=== PATIENT | male | born 1990 | race Caucasian/White ===

== ENCOUNTER 2018-09-19 21:18 | Inpatient (IN) | payer BC, OTHER ==
[~2018-09-19] VITALS: Ht 185.4 cm; Wt 81.6 kg
[2018-09-20] MEDS ORDERED: ONDANSETRON 4 MG/2 ML VIAL IM PRN (14:00)
[2018-09-20] MEDS ORDERED: IBUPROFEN 600 MG TABLET PO PRN (14:00)
[2018-09-20] MEDS ORDERED: MAGNESIUM HYDROXIDE 30 ML LIQUID UDC PO PRN (14:00)
[2018-09-20] MEDS ORDERED: BUPRENORPHINE HCL 2 MG TAB.SUBL SL PRN (14:00)
[2018-09-20] MEDS ORDERED: LORAZEPAM 1 MG TABLET PO PRN (14:00)
[2018-09-20] MEDS ORDERED: HYDROXYZINE PAMOATE 25 MG CAPSULE PO PRN (14:00)
[2018-09-20] MEDS ORDERED: LOPERAMIDE HCL 2 MG CAPSULE PO PRN ×2 (14:00)
[2018-09-20] MEDS ORDERED: MAG HYDROX/AL HYDROX/SIMETH 30 ML LIQUID UDC PO PRN (14:00)
[2018-09-20] MEDS ORDERED: ONDANSETRON ODT 4 MG TAB.RAPDIS SL PRN (14:00)
[2018-09-20] MEDS ORDERED: MIRALAX 17 GM POWD.PACK PO PRN (14:00)
[2018-09-20] MEDS ORDERED: diphenhydrAMINE 50 MG CAPSULE PO PRN (14:00)
[2018-09-20] MEDS ORDERED: 6 DAY PHENOBARBITAL TAPER -SERENITY PROTOCOL PO PRN (14:00)
[2018-09-20] MEDS ORDERED: ACETAMINOPHEN 325 MG TABLET PO PRN (14:00)
[2018-09-20] MEDS: MULTIVITAMINS,THERAPEUTIC TABLET PO SCH (14:00)
[2018-09-20 14:10] LABS: *AMPHETAMINE, URINE POSITIVE (NEGATIVE); *BARBITURATE, URINE NEGATIVE (NEGATIVE); *CANNABINOID, URINE NEGATIVE (NEGATIVE); *COCCAINE, URINE NEGATIVE (NEGATIVE); *OPIATE, URINE POSITIVE (NEGATIVE); *PHENCYCLIDINE SCREEN,URINE NEGATIVE (NEGATIVE)
[2018-09-20 15:09] LABS: BASOPHILS % (AUTO) 0.6 % (0.0-2.0); EOSINOPHILS # (AUTO) 0.2 K/uL (0.0-0.7); EOSINOPHILS % (AUTO) 2.8 % (0.0-7.0); HEMATOCRIT 39.8 % (36.7-47.1); HEMOGLOBIN 13.4 g/dL (12.5-16.3); LYMPHOCYTES # (AUTO) 1.9 K/uL (20.0-40.0); LYMPHOCYTES % (AUTO) 28.8 % (20.5-51.5); MEAN CORPUSCULAR HEMOGLOBIN 29.6 uug (23.8-33.4); MEAN CORPUSCULAR HGB CONC 34 g/dL (32.5-36.3); MEAN CORPUSCULAR VOLUME 87.8 fL (73.0-96.2); MONOCYTES # (AUTO) 0.7 K/uL (2.0-10.0); MONOCYTES % (AUTO) 10.7 % (0.0-11.0); NEUTROPHILS # (AUTO) 3.7 K/uL (1.8-8.9); NEUTROPHILS % (AUTO) 57.1 % (38.5-71.5); PLATELET COUNT (AUTO) 195 K/uL (152-348); RED BLOOD CELL COUNT(AUTO) 4.53 MIL/uL (4.06-5.63); WHITE BLOOD COUNT (AUTO) 6.5 K/uL (3.6-10.2)
[2018-09-20 15:20] LABS: ALANINE AMINOTRANSFERASE 79 U/L (16-63); ALKALINE PHOSPHATASE 60 U/L (50-136); ASPARTATE AMINOTRANSFERASE 42 U/L (15-37); BILIRUBIN,TOTAL 0.3 mg/dL (0.2-1.0); CARBON DIOXIDE 32 mmol/L (21-32); CHLORIDE 102 mmol/L (98-107); CREATININE 0.8 mg/dL (0.6-1.3); GLUCOSE 94 mg/dL (74-106); MAGNESIUM 1.7 mg/dL (1.8-2.4); POTASSIUM 3.9 mmol/L (3.5-5.1); TOTAL PROTEIN, SERUM 7.2 g/dL (6.4-8.2); UREA NITROGEN, BLOOD 11 mg/dL (7-18)
[2018-09-20 15:24] LABS: ETHANOL < 3 MG/DL (0-0)
[2018-09-20] MEDS: PHENOBARBITAL 60 MG TABLET PO SCH ×3 (15:24→21:31)
[2018-09-20 15:31] LABS: THYROID STIMULATING HORMONE 1.103 mIU/mL (0.358-3.740)
[2018-09-20 16:00] VITALS: BP 122/80
[2018-09-20] MEDS ORDERED: NAPR220C15 PO (18:13)
[2018-09-20 20:00] VITALS: BP_SYST 128; BP_SYST 137; BP_DIAS 70; BP_DIAS 84
[2018-09-20] MEDS ORDERED: MAGNESIUM OXIDE 400 MG TABLET PO ONE (22:00)
[2018-09-21] VITALS: BP 128/76
[2018-09-21 04:00] VITALS: BP 134/86
[2018-09-21 08:00] VITALS: BP 119/67
[2018-09-21] MEDS ORDERED: 5 DAY TAPER BUPRENORPHINE -SERENITY PROTOCOL SL PRN (09:00)
[2018-09-21] MEDS ORDERED: TUBERCULIN,PURIF.PROT.DERIV. 5 TU/0.1 ML TEST ID ONE (09:00)
[2018-09-21] MEDS: PHENOBARBITAL 60 MG TABLET PO SCH ×3 (09:03→20:44)
[2018-09-21] MEDS: MULTIVITAMINS,THERAPEUTIC TABLET PO SCH (09:03)
[2018-09-21] MEDS: BUPRENORPHINE HCL 2 MG TAB.SUBL SL SCH ×4 (09:03→20:45)
[2018-09-21 12:01] VITALS: BP 140/88
[2018-09-21 16:00] VITALS: BP 118/62
[2018-09-21 20:00] VITALS: BP 114/65
[2018-09-21] MEDS: METHOCARBAMOL 750 MG TABLET PO PRN (20:44)
[2018-09-22] VITALS: BP 128/71
[2018-09-22 08:00] VITALS: BP 105/57
[2018-09-22] MEDS: MULTIVITAMINS,THERAPEUTIC TABLET PO SCH (09:00)
[2018-09-22] MEDS: BUPRENORPHINE HCL 2 MG TAB.SUBL SL SCH ×3 (09:37→21:12)
[2018-09-22] MEDS: PHENOBARBITAL 60 MG TABLET PO SCH ×4 (09:37→21:13)
[2018-09-22 12:00] VITALS: BP 121/77
[2018-09-22 14:08] LABS: HEPATITIS B SURFACE AG Negative (Negative)
[2018-09-22 16:00] VITALS: BP 118/79
[2018-09-22 20:00] VITALS: BP 120/78
[2018-09-22] MEDS: CLONIDINE HCL 0.1 MG TABLET PO PRN (21:13)
[2018-09-22] MEDS: METHOCARBAMOL 750 MG TABLET PO PRN (21:13)
[2018-09-23] VITALS: BP 117/74
[2018-09-23 08:00] VITALS: BP 134/81
[2018-09-23] MEDS ORDERED: BUPRENORPHINE HCL 2 MG TAB.SUBL SL SCH (09:00)
[2018-09-23] MEDS: MULTIVITAMINS,THERAPEUTIC TABLET PO SCH (09:00)
[2018-09-23] MEDS: PHENOBARBITAL 60 MG TABLET PO SCH ×3 (09:00→20:32)
[2018-09-23 12:00] VITALS: BP 125/65
[2018-09-23] MEDS: BUPRENORPHINE HCL 2 MG TAB.SUBL SL SCH ×2 (15:00→20:32)
[2018-09-23 16:30] VITALS: BP 131/85
[2018-09-23 20:00] VITALS: BP 142/83
[2018-09-23] MEDS: METHOCARBAMOL 750 MG TABLET PO PRN (20:28)
[2018-09-23] MEDS: CLONIDINE HCL 0.1 MG TABLET PO PRN (20:28)
[2018-09-24] VITALS: BP 132/79
[2018-09-24 08:00] VITALS: BP 99/52
[2018-09-24] MEDS: BUPRENORPHINE HCL 2 MG TAB.SUBL SL SCH ×2 (09:00→14:39)
[2018-09-24] MEDS ORDERED: PHENOBARBITAL 60 MG TABLET PO SCH (09:00)
[2018-09-24] MEDS: MULTIVITAMINS,THERAPEUTIC TABLET PO SCH (09:00)
[2018-09-24 12:00] VITALS: BP 114/73
[2018-09-24] MEDS ORDERED: NALO4SPR NS (14:43)
[2018-09-24 16:00] VITALS: BP 105/56
[2018-09-24 20:30] VITALS: BP 132/70
[2018-09-24] MEDS: CLONIDINE HCL 0.1 MG TABLET PO PRN (22:36)
[2018-09-25 08:00] VITALS: BP 111/57
[2018-09-25] MEDS ORDERED: BUPRENORPHINE HCL 2 MG TAB.SUBL SL SCH (09:00)
[2018-09-25] MEDS: MULTIVITAMINS,THERAPEUTIC TABLET PO SCH (09:00)
[2018-09-25] MEDS ORDERED: PHENOBARBITAL 60 MG TABLET PO SCH (09:00)
== END 2018-09-25 09:38 | disposition home or self-care (01) | DRG 895 ==
LOC: SRC 09-20 12:11
PROVIDERS: ADMIT Family Medicine Addiction Medicine; ATTEND Family Medicine Addiction Medicine
PROC: HZ2ZZZZ Detoxification Services for Substance Abuse Treatment (ICD-10-PCS; principal; 2018-09-20)
PROC: HZ31ZZZ Individual Counseling for Substance Abuse Treatment, Behavioral (ICD-10-PCS; 2018-09-23)
PROC: HZ41ZZZ Group Counseling for Substance Abuse Treatment, Behavioral (ICD-10-PCS; 2018-09-23)
DX: F10.230 Alcohol dependence with withdrawal, uncomplicated (principal); F31.60 Bipolar disorder, current episode mixed, unspecified; F11.23 Opioid dependence with withdrawal; Y90.0 Blood alcohol level of less than 20 mg/100 ml; F13.230 Sedative, hypnotic or anxiolytic dependence with withdrawal, uncomplicated; F15.23 Other stimulant dependence with withdrawal; F41.9 Anxiety disorder, unspecified; E83.42 Hypomagnesemia; Z81.1 Family history of alcohol abuse and dependence; Z81.8 Family history of other mental and behavioral disorders; Z59.0 Homelessness; R74.0 Nonspecific elevation of levels of transaminase and lactic acid dehydrogenase [LDH]; R76.8 Other specified abnormal immunological findings in serum; F17.210 Nicotine dependence, cigarettes, uncomplicated
CPT/HCPCS: 36415; 70030-TC; 80307; 80324; 80361; 83735; 84443; 85025; 86592; 86705; 86803; 87340; 87806; A4663; G0480; J8499; Q0163